=== PATIENT | female | born 1990 | race Caucasian/White ===

== ENCOUNTER 2017-01-27 20:25 | Emergency (ER) | payer OTHER ==
[~2017-01-27] VITALS: Ht 157.5 cm; Wt 56.8 kg
[~2017-01-27 20:25] MED LIST: ADVI200C9 PO; FLON0.053; LOES1TAB2 PO; PROZ40CA PO
[2017-01-27 20:37] VITALS: BP 114/58; PULSE 81; RESP 16; TEMP 97.6; O2SAT 97
[2017-01-27] MEDS ORDERED: PROZ40CA PO (20:47)
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
== END 2017-01-27 21:03 | disposition home or self-care (01) ==
LOC: PHEFT 20:25
DX: S16.1XXA Strain of muscle, fascia and tendon at neck level, initial encounter (principal); M54.5 Low back pain; V59.40XA Driver of pick-up truck or van injured in collision with unspecified motor vehicles in traffic accident, initial encounter
CPT/HCPCS: 99282